=== PATIENT | male | born 1975 | race Caucasian/White ===

== ENCOUNTER 2025-03-14 12:41 | Emergency (ER) | payer OTHER, SELFPAY ==
--- NOTE | ~2025-03-14 | XR_ITS ---
EXAMINATION: XR KNEE, RIGHT CLINICAL INFORMATION: Right knee pain COMPARISON: None available. TECHNIQUE: Four views of the right knee. FINDINGS: Small volume of fluid is visible in the suprapatellar pouch. There is questionable narrowing of the lateral greater than medial joint spaces. No definite osteophytes are seen. XR/XR knee RT 4V IMPRESSION: Small joint effusion. Electronically signed by: Beau Castillo MD 03/14/2025 01:14 PM EDT
[2025-03-14 12:46] VITALS: BP 128/75; PULSE 86; RESP 16; TEMP 36.5; O2SAT 97; BMI 23.7
--- NOTE | 2025-03-14 12:53 | ED_ITS ---
HPI - General Adult General Chief complaint: General Medical Stated complaint: gum infection , swelling, ankle pain Time Seen by Provider: 03/14/25 12:53 Source: patient Mode of arrival: ambulatory Limitations: no limitations History of Present Illness ED Provider: Ramana Goldberg HPI narrative: 50 yold male presents to the ED for lumps on gums that has been chronic. Patient states also chronic right knee pain ever since falling unto her right knee in may. Related Data Previous Rx's ?Medication ?Instructions ?Recorded cephalexin 500 mg capsule 500 mg PO QID 7 days #28 cap s 03/14/25 chlorhexidine gluconate 0.12 % 15 ml buccal BID #120 m L 03/14/25 mouthwash naproxen 500 mg tablet 500 mg PO BID PRN pain #14 t abs 03/14/25 Allergies Allergy/AdvReac Type Severity Reaction Status Date / Time Penicillins (PENICILLINS) Allergy Unknown UNKNOWN Verified 03/14/25 12:50 Review of Systems 2 Review of Systems: sores on gums, right knee pain Yes all other systems are reviewed and are negative PMFSH Social History Social History Advance Directives: No Advance Directives Information Provided: Yes Physical Exam ED Vital Signs: Vital Signs - 24 hr 03/14/25 12:46 Temperature 97.7 F Pulse Rate 86 Respiratory Rate 16 Blood Pressure 128/75 Pulse Oximetry 97 Oxygen Delivery Method Room Air BMI result Body Mass Index 23.7 Const Orientation/consciousness: patient oriented x3 HENMT Head: Yes normal to inspection, Yes No palpable skull fracture present, Yes normocephalic and Yes atraumatic Ears: hearing grossly normal bilaterally, external ears normal, TM's normal bilaterally, TM normal on the right, TM normal on the left, EAC's normal, mastoids normal and no periauricular adenopathy Face and sinus: Yes normal facial exam, Yes sinuses nontender and Yes face symmetric Mouth: Normal oral and palatal mucosa present, lip normal and tongue normal Teeth and gingiva: gingiva abnormal (sores. no gum swelling or discharge) Throat: Yes posterior oropharynx normal, Yes tonsils normal and Yes uvula midline Eyes General: appearance normal, both eyes and all related structures Neck Neck: Yes normal visual inspection, Yes full ROM, Yes no lymphadenopathy, Yes no meningeal signs, Yes trachea midline, Yes supple, No anterior neck swelling and No tender Chest Chest palpation & inspection: normal inspection of the chest and normal palpation of entire chest wall Resp Effort & Inspection: normal respiratory effort and able to speak in complete sentences Auscultation: clear to auscultation bilaterally Cardio Jugular venous distension: no JVD Heart sounds: S1 normal heart sound present and S2 normal heart sound present GI Inspection: Yes normal to inspection Palpation (GI): Soft to palpation, not firm, nontender, no guarding and not rigid General: Yes no CVA tenderness Back/Spine/Pelvis Back: no CVA tenderness and No back tenderness Skin General skin exam: no rashes or lesions noted, elasticity normal and turgor normal Neuro General: patient oriented x3, gait normal, tone normal, moves all extremities, Normal light touch and pain sensation, no meningeal signs, no focal motor deficits, CN's II-XI intact bilaterally and normal sensation to monofilament Extrem General: Yes normal to inspection, Yes full ROM and Yes capillary refill normal Knee images: 2 1. negative for swelling, erythema, ecchymosis, stiffness, deformitites, or ecchymoaia. positive for tenderness. rest of extremity is normal. motor, neuro, and vascular exam is intact. Psych Appearance: grossly normal, well kempt and not disheveled Medical Decision Making Medical Decision Making MDM Narrative: 50-year-old male presents to ED for multiple complaints. Patient states, SARs and feeling, inflamed. Patient has tenderness present chronic issue. Patient is a smoker. Patient denies any throat pain, neck swelling, drooling, change in voice fever or chills. Secondary complaint is chronic right knee pain ever since falling in may. Patient denies any redness, swelling or stiffness. Negative for signs of septic joint, gout, DVT, osteomyelitis, necrotizing fasciitis, deirdre angina, retropharyngeal abscess, peritonsillar abscess, epiglottitis, compartment syndrome, or any other life threatening eitoogy. Patient be treated as gingivitis for the gums but informed we will need to follow up with Oral maxillary for biopsy of SARs. Patient is a smoker. placed in acewrap. Differential Diagnosis Differential Diagnoses: The differential diagnosis associated with the presentation includes Admission/Observation Consideration of admission/observation: Escalation of care including admission/observation considered Independent Interpretation I performed an independent interpretation of an: Plain X-Ray Independent Historian Clinical information obtained from an independent historian. History obtained from or confirmed by: Other (patient) Discharge Plan Discharge Clinical Impression: Gingivitis, Knee pain, Knee swelling Patient Disposition: Home, Self-Care Instructions: Gingivitis (ED), Swollen Knee Joint (ED) Additional Instructions: You will need to follow-up with your primary care provider, dentist, and ENT for re-evaluation of your gums and for possible biopsy if indicated. Return to ED immediately for increased knee pain, any knee swelling, redness, stiffness, fever, chills, oral pain, drooling, change in voice, neck pain, or any other concerning symptoms. Ordering Physician: Ramana Goldberg Date of Service: 03/14/25 Procedure(s): XR knee RT 4V Accession Number(s): [id number] cc: Ramana Goldberg; Hugo Bell MD~ Reason for Exam: Right knee pain EXAMINATION: XR KNEE, RIGHT CLINICAL INFORMATION: Right knee pain COMPARISON: None available. TECHNIQUE: Four views of the right knee. FINDINGS: Small volume of fluid is visible in the suprapatellar pouch. There is questionable narrowing of the lateral greater than medial joint spaces. No definite osteophytes are seen. XR/XR knee RT 4V IMPRESSION: Small joint effusion. Electronically signed by: Beau Castillo MD 03/14/2025 01:14 PM EDT Prescriptions: New chlorhexidine gluconate 0.12 % mouthwash 15 ml buccal BID Qty: 120 0RF naproxen 500 mg tablet 500 mg PO BID PRN (Reason: pain) Qty: 14 0RF cephalexin 500 mg capsule 500 mg PO QID 7 Days Qty: 28 0RF Referrals: [facility] [Provider Group] - 2 days Referral Note: Knee pain small joint effusion x-ray Clinical Impression: Knee swelling; Gingivitis; Knee pain Hugo Bell MD [Primary Care Provider, Family Practice] - 2 days Referral Note: Gingivitis knee pain Clinical Impression: Knee swelling; Gingivitis; Knee pain Osvaldo Thomas [Physician, Ear, Nose, Throat] - 2 days Referral Note: Gingivitis may need biopsy Clinical Impression: Knee swelling; Gingivitis; Knee pain Stand Alone Forms: Work/School Release Discharge Date/Time: 03/14/25 19:50 Print Language: Guyanese
--- OUTSIDE RECORDS SUMMARY | 2025-03-14 18:23 | XMS_ITS | Encounter Summary ---
Author Organization [facility] Address [address] [place] [address] Phone Care Team Providers Care Director Decision Support Name Role Phone Hugo Bell MD Primary Care Provider [phone] Encounter Details Date Type Department Care Team (Late st Contact Info) Description 05/10/2020 Procedure Pass [place] Admitting Dept - Virtual Department [address] [place] [phone] Social History Tobacco Use Types Packs/Day Years Used Date Smoking Tobacco: Former Cigarettes Smokeless Tobacco: Never Comments:quit over a month a go Alcohol Use Standard Drinks/Week Comments Yes 1 (1 standard drink = 0.6 oz pur e alcohol) Sex and Gender Information Value Date Recorded Sex Assigned at Male 07/05/2017 9:38 AM EST Legal Sex Male 9:27 PM EDT Gender Identity Male 07/05/2017 9:38 AM EST Sexual Orientation Straight 07/05/2017 9: 38 AM EST documented as of this encounter Plan of Treatment Not on file documented as of this encounter Visit Diagnoses Not on filedocumented in this encounter Additional Health Concerns Infection Onset Date Last Indicated Resolved Time MRSA 03/13/2019 03/13/2019 08/12/2022 1:41 AM EST documented as of this encounter Care Teams Director Decision Support Relationship Specialty Start Date End Date Hugo Bell MD [address] [place] [address] PCP - General Family Medicine 01/08/20 documented as of this encounter Additional Source Comments The information contained in this document represents components of the legal health record. It is not the complete legal health record.[facility]
--- OUTSIDE RECORDS SUMMARY | 2025-03-14 18:23 | XMS_ITS | Encounter Summary ---
Author Organization [facility] Address [address] [place] [address] Phone Care Team Providers Care Web Operations Administrator Name Role Phone Hugo Bell MD Primary Care Provider [phone] Encounter Details Date Type Department Care Team (Late st Contact Info) Description 08/09/2020 Procedure Pass [place] Admitting Dept - Virtual Department [address] [place] [id number] Social History Tobacco Use Types Packs/Day Years Used Date Smoking Tobacco: Former Cigarettes 1 20 Smokeless Tobacco: Never Comments:quit over a month [...] documented as of this encounter Care Teams Web Operations Administrator Relationship Specialty Start Date End Date Hugo Bell MD [address] [place] [address] [email or web address] PCP - General Family Medicine 01/08/20 documented as of this encounter Additional Source Comments The information contained in this document represents components of the legal health record. It is not the complete legal health record.[facility]
--- OUTSIDE RECORDS SUMMARY | 2025-03-14 18:23 | XMS_ITS | Clinical Summary ---
Author Organization [facility] Address [address] [place] [address] Phone Care Team Providers Care Finance Controller Name Role Phone Hugo Bell MD Primary Care Provider [phone] Allergies Active Allergy Reactions Criticality Noted Date Comments Aripiprazole Swelling 12/08/2023 Hand and face swelling Olanzapine 03/28/2024 Per [facility] ED record Penicillins 05/11/2017 Trazodone Unknown 12/08/2017 Hand and face swelling Bupropion Hcl Rash Low 12/08/2023 Sun rash Medications * This document contains information received from the source organization and may not represent a complete record from that organization. cholecalciferol (VITAMIN D3) 25 MCG (1,000 unit) tablet Take 1 tablet (1,000 Units total) by mouth daily. 14 tablet 2 03/09/2024 Active citalopram (CELEXA) 20 MG tablet Take 20 mg by mouth daily. Active THERA-M 19 mg iron- 400 mcg Tab tablet Take 1 tablet by mouth daily. 05/05/2024 Active risperiDONE (RISPERDAL) 0.5 MG tablet Take 0.5 mg by mouth 2 (two) times a day. Per [facility]'s pharmacy prn paranoia 05/18/2024 Active risperiDONE (RISPERDAL) 1 MG tablet Take 1 mg by mouth every morning. 05/18/2024 Active risperiDONE (RISPERDAL) 2 MG tablet Take 2 mg by mouth nightly at bedtime. 05/18/2024 Active LORazepam (ATIVAN) 1 MG tablet Take 1 tablet (1 mg total) by mouth 3 (three) times a day as needed for anxiety. 45 tablet 05/30/2024 Active folic acid (FOLVITE) 1 MG tablet Take 1 tablet (1 mg total) by mouth daily. 30 tablet 05/30/2024 Active meloxicam (MOBIC) 7.5 MG tablet Take 7.5 mg by mouth 2 (two) times a day. 09/06/2024 Active clindamycin (CLEOCIN) 300 MG capsule Take 1 capsule (300 mg total) by mouth 3 (three) times a day. 21 capsule 02/07/2025 Active chlorhexidine (PERIDEX) 0.12 % solution Use as directed 15 mL in the mouth or throat 2 (two) times a day. 120 mL 02/07/2025 Active Active Problems Problem Noted Date Diagnosed Date Mental health problem 10/01/2024 Suicidal ideation 07/04/2024 Alcohol use disorder 05/24/2024 Cocaine use disorder 05/24/2024 Severe recurrent major depre ssion without psychotic features 03/03/2024 Major depression, recurrent 12/08/2023 Verbalizes suicidal thoughts 09/11/2023 Alcoholic intoxication without complication 05/28 Severe major depression with psychotic features 01/12/2019 Schizoaffective disorder, depressive type 2017 Schizoaffective disorder 11/05/2017 Severe major depression 05/11/2017 Resolved Problems Problem Noted Date Diagnosed Date Resolved Date Suicidal ideation 05/28/2022 05/30/2024 Encounters Date Type Department Care Team Description 02/07/2025 3:49 AM EDT - 02/07/2025 4:00 AM EDT Emergency [facility] [address] [place] [address] Scooby Jiménez, DO Discharge Disposition: Home or Self Care from Last 3 Months Immunizations Immunization Administration Dates Next Due INFLUENZA, SPLIT VIRUS, TRIVALENT PF 05/30/2024( Deferred: Patient Refused) Social History Tobacco Use Types Packs/Day Years Used Date Smoking Tobacco: Every Day Cigarettes 0.7 30.7 Started: 1994 Passive Smoke Exposure: Past Tobacco Cessation:Ready to Q uit: Not Asked; Counseling Given: Yes Comments:Using Nicotine transdermal patch 14 mg/24 hr. Daily. Has not been smoking in addition to patch. Alcohol Use Standard Drinks/Week Comments Yes 6 (1 standard drink = 0.6 oz pur e alcohol) Education Answer Date Recorded Are you interested in more education? Not on raad e 10/23/2022 Are you concerned about learning? Not on file 10/23/2022 No 10/23/2022 No 10/23/2022 Food Answer Date Recorded Within the past 6 months we worried whether our food would run out before we got money to buy more. Unable to assess 025 Within the past 6 months the food we bought just didn't last and we didn't have enough money to get more. Unable to assess 02/07/2025 Residential Stability Answer Date Recor ded What is your housing situation today? Unable to assess 02/07/2025 How many times have you moved in the past 12 wed th? Unable to assess 02/07/2025 Paying for Meds Answer Date Recorded Do you have trouble paying for medicines? Unable to assess 02/07/2025 Paying Utility Bills Answer Date Record ed Do you have trouble paying y our heating or electricity bill? Unable to assess 02/07/2025 Transportation Answer Date Recorded Has the lack of transportati on kept you from medical appointments or from getting medications? Unable to assess 02/07/2025 Digital Access Answer Date Recorded No 02/07/2025 No 02/07/2025 Do you have reliable internet access at home? Un able to assess 02/07/2025 Do you have a device (e.g., phone, tablet, computer) with a working camera? Unable to assess 02/07/2025 Intimate Partner Violence Answer Date R ecorded Are you denied basic needs s uch as food, clothing, or medical care? No 02/07/2025 In the past 12 months have y ou been in a relationship with a person who hurts, threatens, or tries to control you? No 02/07/2025 Are you denied basic needs s uch as food, clothing, or medical care? No 02/07/2025 In the past 12 months have y ou been in a relationship with a person who hurts, threatens, or tries to control you? No 02/07/2025 Sex and Gender Information Value Date Recorded Sex Assigned at Male 07/05/2017 9:38 AM EST Legal Sex Male 9:27 PM EDT Gender Identity Male 07/05/2017 9:38 AM EST Sexual Orientation Straight 07/05/2017 9: 38 AM EST Last Filed Vital Signs Vital Sign Reading Time Taken Comments Blood Pressure 121/78 02/07/2025 3:57 AM EDT Pulse 69 02/07/2025 3:57 AM EDT Temperature 36.3 C (97.3 F) 02/07/2025 3:57 AM EDT Respiratory Rate 18 02/07/2025 3:57 AM EDT Oxygen Saturation 97% 02/07/2025 3:57 AM EDT Inhaled Oxygen Concentration - - Weight 68 kg (150 lb) 07/04/2024 1:11 AM EST Height 177.8 cm (5' 10 ) 07/04/2024 1:11 AM EST Body Mass Index 21.52 07/04/2024 1:11 AM EST Plan of Treatment Health Maintenance Due Date Last Done Comments DEPRESSION SCREENING 1988 HEPATITIS C SCREENING 02/19/1994 HIV ONE-TIME SCREENING (18-6 5 YEARS) 02/19/1994 PNEUMOCOCCAL VACCINES (0-49 years) (1 of 2 - PCV) 02/19/1995 COLOGUARD 02/19/2021 COLONOSCOPY 02/19/2021 COLORECTAL CANCER SCREENING 02/19/2021 FIT TEST 02/19/2021 FOBT 02/19/2021 SIGMOIDOSCOPY 02/19/2021 VIRTUAL COLONOSCOPY 02/19/2021 INFLUENZA VACCINE (#1) 2025 COVID-19 VACCINE (2 - 2024-2 6 season) 2025 08/29/2021 SMOKING Hx and SMOKELESS TOB ACCO SCREENING 05/24/2025 05/24/2024 Adult Td,Tdap Booster 05/18/2026 05/18/2016 LIPID PANEL 03/03/2029 03/03/2024 HEPATITIS A VACCINES Aged Out No long er eligible based on patient's age to complete this topic HIB VACCINES Aged Out No longer eligi ble based on patient's age to complete this topic MENINGOCOCCAL VACCINES (ACWY) Aged Out No longer eligible based on patient's age to complete this topic MENINGOCOCCAL VACCINES (B) Aged Out N o longer eligible based on patient's age to complete this topic Medical Devices Not on file Procedures Procedure Name Priority Date/Time Associated Diagnosis Comments LIPID PANEL Routine 03/03/2024 12:05 AM EDT from Last 3 Months or Most Recently Relevant to Health Maintenance Results * (ABNORMAL) Lipid panel (03/03/2024 12:05 AM EDT) HDL 97 mg/dL [facility] Comment: Interpretation <40 mg/dL: Low HDL cholesterol (major risk factor for CHD) Greater than or equal to 60 mg/dL: High HDL cholesterol ( negative risk factor for CHD) HDL - cholesterol is affected by a number of factors, e.g. smoking, excerise, hormones, sex and age. CHOLESTEROL 207 0 - 240 mg/dL [facility] TRIGLYCERIDES 82 30 - 160 mg/dL [facility] LDL 94 50 - 129 mg/dL [facility] Comment: LDL levels in terms of risk for coronary heart disease: <100 mg/dL: Optimal 100-129 mg/dL: Near or above optimal 130-159 mg/dL: Borderline high 160-189 mg/dL: High >190 mg/dL: Very High CARDIAC RISK RATIO 2.1(L) 3.4 - 5.0 C [facility] 03/03/2024 12:0 5 AM EDT 03/03/2024 12:09 AM EDT us Tolu Payne MD LAB BLOOD ORDERABLES Final Resu lt [address] [address] from Last 3 Months or Most Recently Relevant to Health Maintenance Insurance [facility] ONE CARE MEDICARE REPLACEMENT ANDREA SHAW [id number] [employer] ONE CARE MEDICARE REPLACEMENT [facility] CARE MEDICARE REPLACEMENT Advance Directives For more information, please contact: [phone] (9AM - 5PM [facility], Wednesday-Wednesday) * Full Code (Latest Code Status on File) Date Activated Date Inactivated Comments 05/28/2022 1:50 PM Question Answer Comments Code Status Confirmed With: Patient * Full Code (Presumed) Date Activated Date Inactivated Comments 01/12/2019 3:48 PM 01/18/2019 1:25 PM * Full Code (Presumed) Date Activated Date Inactivated Comments 07/26/2018 1:19 AM 07/29/2018 1:19 PM * Full Code (Presumed) Date Activated Date Inactivated Comments 12/09/2017 2:42 PM 12/14/2017 2:35 PM * Full Code (Presumed) Date Activated Date Inactivated Comments 11/05/2017 7:01 PM 11/10/2017 1:29 PM Care Teams Finance Controller Relationship Specialty Start Date End Date Hugo Bell MD [address] [place] [address] [email or web address] PCP - General Family Medicine 01/08/20 Additional Source Comments The information contained in this document represents components of the legal health record. It is not the complete legal health record.[facility]
--- OUTSIDE RECORDS SUMMARY | 2025-03-14 18:23 | XMS_ITS | Encounter Summary ---
Author Organization [facility] Address [address] [place] [address] Phone Care Team Providers Care Arts And Crafts Instructor Name Role Phone Hugo Bell MD Primary Care Provider + [phone] Hugo Bell MD Primary Care Provider [phone] Encounter Details Date Type Department Care Team (Late st Contact Info) Description 03/13/2019 Documentation [facility] Infectious Disease Virtual Department [address] [place] [address] Pcp, Not Required [address] [place] [address] Social History Tobacco Use Types Packs/Day Years Used Date Smoking Tobacco: Every Day Cigarettes Smokeless Tobacco: Never Comments:Pt reports I only had 4 all month . Alcohol Use Standard Drinks/Week Comments Not Currently 0 (1 standard drink = 0.6 oz pur [...] documented as of this encounter Care Teams Arts And Crafts Instructor Relationship Specialty Start Date End Date Hugo Bell MD [address] [place] [address] PCP - General Family Medicine 12/15/18 01/07/20 Hugo Bell MD [address] [place] [address] [email or web address] PCP - General Family Medicine 01/08/20 documented as of this encounter Additional Source Comments The information contained in this document represents components of the legal health record. It is not the complete legal health record.[facility]
--- OUTSIDE RECORDS SUMMARY | 2025-03-14 18:23 | XMS_ITS | Encounter Summary ---
Author Organization [facility] Address [address] [place] [address] Phone Care Team Providers Care Lan/Wan Engineer Name Role Phone Hugo Bell MD Primary Care Provider [phone] Encounter Details Date Type Department Care Team (Late st Contact Info) Description 04/11/2020 Procedure Pass [facility] Scan - [facility] [address] [place] [address] Social History Tobacco Use Types Packs/Day Years Used Date Smoking Tobacco: Every Day Cigarettes Smokeless Tobacco: Never Comments:quit yesterday Alcohol Use Standard Drinks/Week Comments Yes 6 [...] documented as of this encounter Care Teams Lan/Wan Engineer Relationship Specialty Start Date End Date Hugo Bell MD [address] [place] [address] PCP - General Family Medicine 01/08/20 documented as of this encounter Additional Source Comments The information contained in this document represents components of the legal health record. It is not the complete legal health record.[facility]
--- OUTSIDE RECORDS SUMMARY | 2025-03-14 18:23 | XMS_ITS | Encounter Summary ---
Author Organization [facility] Address [address] [place] [address] Phone Care Team Providers Care Vegetables Cook Name Role Phone Hugo Bell MD Primary Care Provider + [phone] Encounter Details Date Type Department Care Team (Late st Contact Info) Description 04/24/2020 Ancillary Orders [facility], X-Ray - [facility] [address] [place] [address] David Linares MD [address] [place] [address], [place] [address] [email or web address] Neoplasm Social History Tobacco Use Types Packs/Day Years [...] on file documented as of this encounter Results * XR CHEST PA AND LATERAL 2 VIEWS (04/24/2020 3:06 PM EDT) Anatomical Region Laterality Modality Chest Computed Radiogr aphy 04/24/2020 3:15 PM EDT Impressions 04/24/2020 3:16 PM EDT No evidence of metastatic or acute chest disease. Narrative 04/24/2020 3:16 PM EDT HISTORY: As above. COMPARISON: 07/16/2018. CHEST RADIOGRAPH FINDINGS: Views: 2. Lines/Tubes: None. Heart and Mediastinum: Normal. Lungs: Lungs are clear. Bones: Unremarkable. Soft Tissues: Unremarkable. Procedure Note Alex Koo MD - 04/24/2020 HISTORY: As above. COMPARISON: 07/16/2018. CHEST RADIOGRAPH FINDINGS: Views: 2. Lines/Tubes: None. Heart and Mediastinum: Normal. Lungs: Lungs are clear. Bones: Unremarkable. Soft Tissues: Unremarkable. IMPRESSION: No evidence of metastatic or acute chest disease. 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 It is not the complete legal health record.[facility]
--- OUTSIDE RECORDS SUMMARY | 2025-03-14 18:23 | XMS_ITS | Encounter Summary ---
Author Organization [facility] Address [address] [place] [phone] Phone Care Team Providers Care Cigarette Filter Inspector Name Role Phone Hugo Bell MD Primary Care Provider + [phone] Reason for Referral * MRI/CAT Scan - Closed Specialty Diagnoses / Procedures Referred By Kathleen de la torre Referred To Contact Radiology Diagnoses Gross hematuria Procedures CT Abdomen/Pelvis David Linares MD Phone: tel: fax: [email or web address]:[email or web address] Referral ID Status Reason Start Date Expiration Date Visits Re quested Visits Authorized [id number] Closed 04/11/2020 04/11/2021 1 1 Encounter Details Date Type Department Care Team (Late st Contact Info) Description 04/11/2020 Ancillary Orders Virtual Department [address] [place] [phone] David Linares MD [address] [place] [address], [place] [address] [email or web address] Gross hematuria Social History Tobacco Use Types Packs/Day Years Used Date Smoking Tobacco: Every Day Cigarettes Smokeless Tobacco: Never Comments:Pt reports I only had 4 all month . Alcohol Use Standard Drinks/Week Comments Yes 0 (1 standard drink = 0.6 oz pur e alcohol) 4 beers daily Sex and Gender Information Value Date Recorded Sex Assigned at Male 07/05/2017 9:38 AM EST Legal Sex Male 9:27 PM EDT Gender Identity Male 07/05/2017 9:38 AM EST Sexual Orientation Straight 07/05/2017 9: 38 AM EST documented as of this encounter Plan of Treatment Not on file documented as of this encounter Results * CT ABDOMEN/PELVIS WITH AND WITHOUT CONTRAST (04/12/2020 3:41 PM EDT) Anatomical Region Laterality Modality Abdomen, Pelvis Computed Tomogra phy 04/12/2020 4:09 PM EDT Impressions 04/12/2020 4:14 PM EDT Probable small left lateral bladder polyp which could be correlated with recent cystoscopic findings. No other significant urinary tract abnormality apparent. TOTAL CTDIvol: mGy POS - [id number] Narrative 04/12/2020 4:14 PM EDT COMPARISON: None TECHNIQUE: Water is used as an oral contrast agent. Precontrast views are obtained from the kidneys through the inferior pubic rami. Intravenous contrast is then administered and scanning obtained at ninety seconds from the dome of the liver to the inferior pubic rami. Delayed scanning is then obtained from above the kidneys through the inferior pubic rami. Multiplanar reformatted images obtained. Automated exposure control utilized. FINDINGS: No urinary calculus, hydronephrosis, or perinephric stranding demonstrated. No renal mass or cyst apparent. There is a small focal soft tissue density along the left lateral bladder wall which could reflect an 8 mm polyp. Bladder otherwise unremarkable in appearance without other uro-endothelial irregularities demonstrated. Liver, spleen, and adrenal glands are unremarkable in appearance. No pancreatic enlargement, duct distention, or peripancreatic inflammatory changes are seen. No evidence of small bowel obstruction, appendicitis, or paracolic inflammatory change. No bowel containing abdominal wall hernia. No aortoiliac aneurysm. No significant free fluid collection demonstrated in the dependent portion of the pelvis. No focal infiltrate or pleural effusion detected at the lung bases. No traumatic or destructive lesions are skeletal lesions seen. There is chronic appearing deformity of the posterior elements at the L5 level without definitive spondylolysis. Procedure Note Ramiro Calzada MD - 04/12/2020 COMPARISON: None TECHNIQUE: Water is used as an oral contrast agent. Precontrast viewsare obtained from the kidneys through the inferior pubic rami.Intravenous contrast is then administered and scanning obtained at ninetyseconds from the dome of the liver to the inferior pubic rami. Delayedscanning is then obtained from above the kidneys through the inferiorpubic rami. Multiplanar reformatted images obtained. Automated exposurecontrol utilized. FINDINGS: No urinary calculus, hydronephrosis, or perinephric strandingdemonstrated. No renal mass or cyst apparent. There is a small focal softtissue density along the left lateral bladder wall which could reflect an8 mm polyp. Bladder otherwise unremarkable in appearance without otheruro-endothelial irregularities demonstrated. Liver, spleen, and adrenal glands are unremarkable in appearance. Nopancreatic enlargement, duct distention, or peripancreatic inflammatorychanges are seen. No evidence of small bowel obstruction, appendicitis, orparacolic inflammatory change. No bowel containing abdominal wall hernia.No aortoiliac aneurysm. No significant free fluid collection demonstratedin the dependent portion of the pelvis. No focal infiltrate or pleural effusion detected at the lung bases. Notraumatic or destructive lesions are skeletal lesions seen. There ischronic appearing deformity of the posterior elements at the L5 levelwithout definitive spondylolysis. IMPRESSION: Probable small left lateral bladder polyp which could be correlated withrecent cystoscopic findings. No other significant urinary tractabnormality apparent. TOTAL CTDIvol: mGy POS - [id number] David Linares MD IMG CT ABD/PELVIS Final Result documented in this encounter Visit Diagnoses Diagnosis Gross hematuria Gross hematuria documented in this encounter Additional Health Concerns Infection Onset Date Last Indicated Resolved Time MRSA 03/13/2019 03/13/2019 08/12/2022 1:41 AM EST documented as of this encounter Care Teams Cigarette Filter Inspector Relationship Specialty Start Date End Date Hugo Bell MD [address] [place] [phone] [email or web address] PCP - General Family Medicine 01/08/20 documented as of this encounter Additional Source Comments The information contained in this document represents components of the legal health record. It is not the complete legal health record.[facility]
--- OUTSIDE RECORDS SUMMARY | 2025-03-14 18:23 | XMS_ITS | Encounter Summary ---
Author Organization [facility] Address [id number] [place] [address] Phone Care Team Providers Care Mobile Manager Name Role Phone Hugo Bell MD Primary Care Provider + [phone] Hugo Bell MD Primary Care Provider + [phone] Encounter Details Date Type Department Care Team (Late st Contact Info) Description 03/15/2019 Transcribe Orders [facility] Specimen Processing [address] [place] [address] Lenny Smith, DO [address] [place] [address] [email or web address] Diagnosis unknown (Primary Dx) Social History Tobacco Use Types Packs/Day Years [...] documented as of this encounter Results * (ABNORMAL) Valproic acid (03/15/2019 10:20 AM EDT) VALPROIC ACID 22.2(L) 50.0 - 100.0 ug/mL [facility] Blood 03/15/2019 10:2 0 AM EDT 03/15/2019 11:11 AM EDT us Lenny Smith DO LAB BLOOD ORDERABLES Final Resul t [facility] [address] [place] [address] documented in this encounter Visit Diagnoses Diagnosis Diagnosis unknown- Primary documented in this encounter Additional Health Concerns Infection Onset Date Last Indicated Resolved Time MRSA 03/13/2019 03/13/2019 08/12/2022 1:41 AM EST documented as of this encounter Care Teams Mobile Manager Relationship Specialty Start Date End Date Hugo Bell MD [address] [place] [address] [email or web address] PCP - General Family Medicine 12/15/18 01/07/20 Hugo Bell MD [address] [place] [address] PCP - General Family Medicine 01/08/20 documented as of this encounter Additional Source Comments The information contained in this document represents components of the legal health record. It is not the complete legal health record.[facility]
--- OUTSIDE RECORDS SUMMARY | 2025-03-14 18:23 | XMS_ITS | Encounter Summary ---
Author Organization [facility] Address [address] [place] [address] Phone Care Team Providers Care Program Checker Name Role Phone Hugo Bell MD Primary Care Provider [phone] Encounter Details Date Type Department Care Team (Late st Contact Info) Description 04/15/2020 Procedure Pass OR Admitting Dept - Virtual Department [address] [place] [phone] Social History Tobacco Use Types Packs/Day Years [...] documented as of this encounter Care Teams Program Checker Relationship Specialty Start Date End Date Hugo Bell MD [address] [place] [address] PCP - General Family Medicine 01/08/20 documented as of this encounter Additional Source Comments The information contained in this document represents components of the legal health record. It is not the complete legal health record.[facility]
--- OUTSIDE RECORDS SUMMARY | 2025-03-14 18:23 | XMS_ITS | Encounter Summary ---
Author Organization [facility] Address [address] [place] [address] Phone Care Team Providers Care Test Examiner Name Role Phone Hugo Bell MD Primary Care Provider + [phone] Hugo Bell MD Primary Care Provider [phone] Hugo Bell MD Primary Care Provider [phone] Encounter Details Date Type Department Care Team ([facility] st Contact Info) Description 08/11/2017 Community Orders [facility] Izabela Donnelly, WENDY [address] [place], [place] [id number] Social History Tobacco Use Types Packs/Day Years Used Date Smoking Tobacco: Every Day Cigarettes Smokeless Tobacco: Never Comments:Pt reports I only had 4 all month . Alcohol Use Standard Drinks/Week Comments Yes 1 [...] documented as of this encounter Care Teams Test Examiner Relationship Specialty Start Date End Date Hugo Bell MD [address] [place] [address] [email or web address] PCP - General Family Medicine 05/11/17 12/14/18 Hugo Bell MD [address] [place] [address] [email or web address] PCP - General Family Medicine 12/15/18 01/07/20 Hugo Bell MD [address] [place] [address] [email or web address] PCP - General Family Medicine 01/08/20 documented as of this encounter Additional Source Comments The information contained in this document represents components of the legal health record. It is not the complete legal health record.[facility]
--- NOTE | 2025-03-14 19:50 | PC.NURSE ---
Was not primary nurse, was charge nurse and departed the pt.
== END 2025-03-14 19:50 | disposition home or self-care (01) ==
PROVIDERS: Emergency Provider Emergency Medicine; PCP Family Medicine
DX: K05.10 Chronic gingivitis, plaque induced (principal); K06.1 Gingival enlargement; M25.561 Pain in right knee; M25.461 Effusion, right knee
CPT/HCPCS: 73564; 99281; 99283

== ENCOUNTER → 2025-03-14 12:53 | Outpatient (BNV) | payer MEDICARE, MEDICAID, SELFPAY | PROVIDERS: Emergency Provider Emergency Medicine; PCP Family Medicine; Visit Provider Radiology Diagnostic Radiology | DX: M25.461 Effusion, right knee (principal) | CPT/HCPCS: 73564 ==